=== PATIENT | female | born 1985 | race Caucasian/White ===

== ENCOUNTER 2018-02-21 11:45 | Day surgery (SDC) | payer BC ==
[2018-02-21] MEDS ORDERED: MIDAZOLAM 1 MG/ML 2 ML INJ (12:25)
[2018-02-21] MEDS ORDERED: PROPOFOL 20 ML (12:25)
[2018-02-21] MEDS ORDERED: FENTAnyl 50 MCG/ML VIAL (12:25)
== END 2018-02-21 14:27 | disposition home or self-care (01) ==
LOC: GIL 11:45
DX: K44.9 Diaphragmatic hernia without obstruction or gangrene (principal); K29.60 Other gastritis without bleeding; K21.9 Gastro-esophageal reflux disease without esophagitis
CPT/HCPCS: 43239; 84703; 87081

== ENCOUNTER 2018-12-23 07:02 | Emergency (ER) | payer BC ==
[2018-12-23] MEDS: SOD CHLORIDE 0.9% 500 ML IV (08:00)
[2018-12-23] MEDS: ALBUTEROL 0.5% (NEB) 2.5 MG/0.5 ML AMP INH (08:03)
[2018-12-23] MEDS: METHYLPREDNISOLONE 125 MG INJ IV (08:03)
[2018-12-23] MEDS: IPRATROPIUM (NEB) 0.5 MG/2.5 ML AMP INH (08:03)
[2018-12-23 08:05] LABS: ADD MAN DIFF? NO
[2018-12-23 08:06] LABS: BASOPHILS % 0.3 % (0.0-2.0); EOSINOPHILS % 0.1 % (0.0-7.0); HEMATOCRIT 39.8 % (37.0-47.0); HEMOGLOBIN 13.5 g/dl (12.0-16.0); LYMPHOCYTES # 1.5 10^3/ul (0.8-2.9); LYMPHOCYTES % 16.1 % (15.0-51.0); MEAN CORPUSCULAR HEMOGLOBIN 32.1 pg (29.0-33.0); MEAN CORPUSCULAR HGB CONC 33.9 g/dl (32.0-37.0); MEAN CORPUSCULAR VOLUME 94.5 fl (82.0-101.0); MEAN PLATELET VOLUME 10.7 fl (7.4-10.4); MONOCYTE # 1.1 10^3/ul (0.3-0.9); MONOCYTES % 11.8 % (0.0-11.0); NEUTROPHIL # 6.5 10^3/ul (1.6-7.5); NEUTROPHILS % 71.3 % (39.0-77.0); PLATELET COUNT 237 10^3/UL (140-415); RED BLOOD COUNT 4.21 10^6/ul (4.20-5.40); RED CELL DISTRIBUTION WIDTH 12.2 % (11.5-14.5)
[2018-12-23 08:06] LABS: WHITE BLOOD COUNT 9.1 10^3/ul (4.8-10.8)
[2018-12-23 08:23] LABS: ANION GAP 15 (5-13); BLOOD UREA NITROGEN 26 mg/dl (7-20); CARBON DIOXIDE 25 mmol/L (21-31); CHLORIDE 98 mmol/L (97-110); CREATININE 1.49 mg/dl (0.44-1.00); Estimated GFR 41 mL/min (>60); GLUCOSE 92 mg/dl (70-220); POTASSIUM 4.2 mmol/L (3.5-5.1); SODIUM 138 mmol/L (135-144)
[2018-12-23] MEDS: HYDROmorphONE 1 MG/ML SYG IV (08:37)
[2018-12-23] MEDS: SOD CHLORIDE 0.9% 1,000 ML IV (08:37)
[2018-12-23] MEDS: ONDANSETRON 4 MG INJ IV (08:37)
== END 2018-12-23 10:33 | disposition home or self-care (01) ==
LOC: E/R 07:02
DX: J40 Bronchitis, not specified as acute or chronic (principal)
CPT/HCPCS: 36415; 71045; 80048; 85025; 94644; 96374; 96375; 99284-25

== ENCOUNTER 2019-03-21 11:47 | Day surgery (SDC) | payer BC ==
[~2019-03-21 11:47] MED LIST: LIDOCAINE 2% (SDV) 5 ML INJ
[2019-03-21] MEDS ORDERED: PROPOFOL 20 ML (12:41)
[2019-03-21] MEDS ORDERED: GLYCOPYRROLATE 0.4 MG INJ (13:33)
== END 2019-03-21 15:17 | disposition home or self-care (01) ==
LOC: GIL 11:47
DX: K21.9 Gastro-esophageal reflux disease without esophagitis (principal); K29.60 Other gastritis without bleeding
CPT/HCPCS: 43239; 88305; 88312